=== PATIENT | female | born 1985 | race Caucasian/White ===

== ENCOUNTER 2024-10-22 14:54 | Outpatient (CLI) | payer SELFPAY ==
[2024-10-22 17:17] LABS: HF Add Manual Diff No
[2024-10-22 17:22] LABS: Hematocrit 38.3 % (36-47); Hemoglobin 12.10 g/dL (11.27-16.99); Mean Corpuscular HGB Conc 31.6 g/dL (30-55); Mean Corpuscular Hemoglobin 26.9 pg (27-33); Mean Corpuscular Volume 85.3 fl (85-98); Nucleated Red Blood Cells % 0 %; Platelet Count 377 10^3/cmm (157-399); Red Blood Count 4.49 10^6/uL (3.85-5.65); White Blood Count 11.40 10^3/uL (3.29-11.43)
[2024-10-22 18:33] LABS: Alanine Aminotransferase 16 U/L (0-33); Albumin Level 4.1 g/dL (3.5-5.2); Alkaline Phosphatase 70 U/L (35-105); Anion Gap 14.3 (5-19); Aspartate Amino Transferase 13 U/L (0-32); Blood Urea Nitrogen 15 mg/dL (6-20); Calcium 8.8 mg/dL (8.5-10.5); Carbon Dioxide 26 mmol/L (22-29); Chloride 103 mmol/L (98-107); Cholesterol 167 mg/dL (0-200); Globulin 3.2 g/dL (1.3-4.6); Glucose 88 mg/dL (65-115); HDL Cholesterol 28 mg/dL (60-100); Osmolality Calculated 288 mOsm/kg (285-295); Potassium 4.3 mmol/L (3.5-5.1); Sodium 139 mmol/L (136-145); Thyroid Stimulating Hormone 1.54 uIU/mL (0.27-4.20); Total Protein 7.3 g/dL (6.6-8.7); Triglycerides 202 mg/dL (0-150)
[2024-10-22 20:10] LABS: Estmated Average Glucose 120; Hemoglobin A1C 5.8 % (4.0-6.0)
== END 2024-10-22 14:55 | disposition home or self-care (01) ==
LOC: LAB 15:00
PROVIDERS: Visit Provider Dermatology
DX: Z01.89 Encounter for other specified special examinations (principal)

== ENCOUNTER → 2024-12-28 15:53 | Outpatient (BNVA) | payer OTHER, SELFPAY | DX: N92.0 Excessive and frequent menstruation with regular cycle (principal) | CPT/HCPCS: 80053; 80061; 82728; 83540; 83550; 84443; 85025 ==

== ENCOUNTER 2025-01-08 13:53 | Outpatient (CLI) | payer SELFPAY ==
--- NOTE | 2025-01-08 15:00 | USR_ITS ---
PROCEDURE INFORMATION: Exam: US Pelvis, Transvaginal, Non-Obstetric Exam date and time: 01/08/2025 2:27 PM Age: 39 years old Clinical indication: Menstruation abnormalities; Excessive menstruation; Additional Info: heavy vaginal bleeding, PCOS TECHNIQUE: Imaging protocol: Real-time transvaginal pelvic (non-obstetric) ultrasound with image documentation. Transvaginal imaging was used for better evaluation of the endometrium, adnexa, and/or cervix. COMPARISON: No relevant prior studies available. FINDINGS: Uterus: The uterus is nongravid and appears normal in size and echogenicity, measuring approximately 8 x 4 x 4 cm in size. A few incidental cervical nabothian cysts. Endometrial thickness is normal measuring 11 mm. Echo appearance is also normal, with a trace of fluid. Right ovary/adnexa: The right ovary is normal in size. Right ovary measures 3.5 x 1.9 x 2.8 cm. Echogenicity of the right ovary is normal. Normal Doppler waveforms. Left ovary/adnexa: The left ovary is normal in size. Left ovary measures 2.4 x 1.9 x 1.9 cm. Echogenicity of the left ovary is normal, with presence of visible follicles. Normal Doppler waveforms. Urinary bladder: Urinary bladder is not evaluated. Intraperitoneal space: No free fluid. US/US transvaginal [id number] IMPRESSION: 1. No evidence of mass or acute disease. 2. No current sonographic support for PCOS. COMMENTS: In general, thickness of endometrium reflects menstrual phase as follows: Menstration 1-4 mm; Proliferative 4-8 mm; Secretory 7-14 mm. For postmenopausal females, normal is 4-8 mm, up to 10 if on hormone replacment.
== END 2025-01-08 13:54 | disposition home or self-care (01) ==
LOC: RAD 13:54
DX: N92.0 Excessive and frequent menstruation with regular cycle (principal); N88.8 Other specified noninflammatory disorders of cervix uteri
CPT/HCPCS: 76830

== ENCOUNTER 2025-01-21 14:40 | Outpatient (CLI) | payer OTHER, SELFPAY ==
--- NOTE | 2025-01-21 15:00 | MM_ITS ---
WS: [id number] BILATERAL 3D TOMOSYNTHESIS DIGITAL SCREENING MAMMOGRAPHY WITH CAD CLINICAL INFORMATION: screening HISTORY: Screening mammogram. No current complaints. COMPARISON: Baseline TECHNIQUE: Bilateral CC and MLO views. FINDINGS: The breasts are composed of heterogeneous fibroglandular density tissue, which can limit the detection of small underlying mass lesions. No suspicious mass, asymmetry, calcifications, or architectural distortion. No evidence of malignancy. MM/MM scr tomosynthesis [id number] IMPRESSION: DENSITY: The breasts are heterogeneously dense, which may obscure small masses. BI-RADS: 1 - Negative FOLLOW UP: 1 Year Follow-up Recommend return to annual screening mammography.
== END 2025-01-21 14:41 | disposition home or self-care (01) ==
LOC: RAD 14:41
DX: Z12.31 Encounter for screening mammogram for malignant neoplasm of breast (principal); R92.333 Mammographic heterogeneous density, bilateral breasts; R92.323 Mammographic fibroglandular density, bilateral breasts
CPT/HCPCS: 77063; 77067